=== PATIENT | male | born 1955 | race Caucasian/White ===

== ENCOUNTER 2019-03-01 13:52 | Emergency (ER) | payer OTHER ==
[~2019-03-01] VITALS: Ht 182.9 cm; Wt 83.0 kg
--- NOTE | 2019-03-01 14:14 | PHYS DOC ---
Past History Past Medical History: CAD, CVA Past Surgical History: Coronary Bypass Surgery Additional Past Surgical Histo: Carotid surgery x 2 Smoking: Non-smoker Alcohol Use: None Drug Use: None Adult General Chief Complaint Chief Complaint: WEAKNESS/GENERALIZED HPI HPI A 63-year-old male presents with left leg weakness, generalized weakness, and four-day history of nausea and vomiting. Patient reports feeling like "he's got hit by a truck ". He has not been able to eat or drink much last 4-5 days due to nausea and vomiting. His diet is poor regardless of nausea and vomiting due to a past carotid surgery and he is unable to eat solid foods. He denies a bowel movement for last 2 weeks, but attributes that to his poor diet. He also complains of inability to walk that started a few weeks ago. He reports his right leg gives out on him. He denies dizziness, lightheadedness, chest pain, chest palpitations, shortness of breath. He also reports that he isn't taking any of his medications any more because he hasn't been able to swallow them. He has fallen multiple times due his weakness. Review of Systems Review of Systems Constitutional: Denies fever or chills. Reports fatigue and general feelings of discomfort. Eyes: Denies redness or eye pain HENT: Denies nasal congestion or sore throat Respiratory: Denies cough or shortness of breath Cardiovascular: Denies chest pain or palpitations GI: Reports abdominal pain, nausea, and vomiting. Denies diarrhea : Denies dysuria or hematuria Musculoskeletal: Denies back pain or joint pain Integument: Multiple abrasions on his face and legs. Neurologic: Denies headache or sensory changes; reports generalized weakness- worse to left leg Complete systems were reviewed and found to be within normal limits, except as documented in this note. Allergies Allergies Allergies Coded Allergies Type Severity Reaction Last Updated Verified No Known Drug Allergies 03/01/19 No Physical Exam Physical Exam Constitutional: Well developed, well nourished, no acute distress, non-toxic appearance HENT: Normocephalic, multiple abrasions across his face in different stages of healing. Dry mucous membranes Eyes: PERRL, EOMI, conjunctiva normal, no discharge Neck: Normal range of motion, no tenderness, supple Cardiovascular: Heart rate normal, regular rhythm Lungs & Thorax: Bilateral breath sounds clear to auscultation, no wheezing Abdomen: Soft, nontender. Skin: Warm, dry, no erythema, no rash Extremities: Multiple abrasions on his legs. Left leg has a 3/5 muscle strength. Right leg 5/5 strength Neurologic: Alert and oriented X 3, normal sensory function, decreased strength to left leg Psychologic: Affect normal, judgement normal EKG EKG EKG at 1432 shows sinus rhythm with a heart rate of 80 bpm. A Q-wave in lead 3 and aVF noted. Radiology/Procedures Radiology/Procedures PROCEDURE: PORTABLE CHEST 1V PORTABLE CHEST 1V 03/01/2019 2:17 PM INDICATION: Weakness COMPARISON: None available TECHNIQUE: Portable frontal view of the chest is provided. FINDINGS: The cardiomediastinal silhouette is within normal limits. Median sternotomy changes are present. Lungs are clear. There are no significant pleural effusions. There is no pulmonary vascular congestion. No pneumothorax. IMPRESSION: There is no acute cardiopulmonary process. Electronically signed by: Ileana Foley MD (03/01/2019 3:07 PM) [facility] PROCEDURE: CT HEAD AND CERVICAL SPINE WO STUDY: CT head and cervical spine without contrast INDICATION: Weakness and pain. History of a fall. COMPARISON: None. TECHNIQUE: Axial CT imaging through the head and cervical spine without the use of intravenous contrast. Sagittal and coronal reformats were obtained. One or more of the following individualized dose reduction techniques were utilized for this examination: 1. Automated exposure control 2. Adjustment of the mA and/or kV according to patient size 3. Use of iterative reconstruction technique. FINDINGS: CT head: No acute intracranial hemorrhage. No CT evidence for an acute cortical infarction. No mass effect, midline shift or hydrocephalus. Intracranial atherosclerotic calcifications. Mild soft tissue prominence involving the left parietal scalp could represent mild contusive injury. The calvarium is intact. CT cervical spine: No acute fracture or traumatic malalignment. Ossification of the posterior longitudinal ligament extending from the C2-C3 disc space to the mid aspect of C4. Flowing ossification along the ventral aspect of the C6-T1 vertebral bodies. Partial ankylosis across the posterior elements at T1-T2. Scattered partially mineralized disc bulges the largest of which is seen at C5-C6. Multilevel facet degeneration and uncovertebral joint hypertrophy. OPLL results in at least moderate central canal stenosis with cord flattening from C2-C3 to the mid C4 level. Mild to moderate central canal stenosis at C5-C6. Mild to moderate bony neural foraminal encroachment at scattered levels. Status post carotid endarterectomy on the right. Calcific atherosclerosis at the left carotid bifurcation. No prevertebral or dorsal paraspinous hematoma. IMPRESSION: CT head: 1. No acute intracranial abnormality by CT. Chronic findings as discussed above. CT cervical spine: 1. No acute fracture or traumatic malalignment. 2. Ossification of the posterior longitudinal ligament from C2-C3 disc space to the mid aspect of C4. Flowing ventral osteophytes from C6 through T1 as well as partial ankylosis across the T1-T2 posterior elements. Though not well evaluated by technique, the ossified posterior longitudinal ligament contributes to at least moderate central canal stenosis with cord flattening. This is a chronic finding but nonemergent/outpatient MRI would better assess for the full extent of stenosis and any associated cord signal abnormality as deemed clinically necessary. Electronically signed by: MELVIN MCFARLAND MD (03/01/2019 3:21 PM) [facility] Course & Med Decision Making Course & Med Decision Making Pertinent Labs and Imaging studies reviewed. (See chart for details) Patient presents with several week history of weakness which has now become worse over the last 4-5 days. Patient also reports his been unable to adequately eat due to swallowing issues he thinks was secondary to his carotid surgery. Patient denies known sick contacts. Denies fever or chills. Patient does have a history of prior CVA. It is unclear if there is any baseline deficit. CT head/cervical spine without acute process. Chest x-ray stable. Labs obtained and posted to chart. Hypokalemia and hypomagnesemia addressed. Patient did complain of some chronic back pain for which Norflex IV was provided. Patient reports has not followed closely with a GI specialist but thinks he may need a swallow study. Patient requiring admission for further evaluation and treatment. Discussed with Dr. Stone (hospitalist) who is in agreement with admission but requests to admit to [facility] due to possible need for GI consultation. Patient will likely also need neurology consultation. Discussed findings and plan with patient and family, who acknowledge understanding and agreement. Dragon Disclaimer Dragon Disclaimer This electronic medical record was generated, in whole or in part, using a voice recognition dictation system. Departure Departure: Impression: Primary Impression: Weakness Additional Impressions: Hypokalemia Hypomagnesemia Vomiting Disposition: 05 TRANSFER OTHER ([facility]- Dr. Stone) Condition: STABLE Referrals: NON,STAFF (PCP) Problem Qualifiers Additional Impressions: Vomiting Vomiting type: unspecified Vomiting Intractability: unspecified Nausea presence: unspecified Qualified Codes: R11.10 - Vomiting, unspecified LATHA COLIN DO Mar 01, 2019 14:14
[2019-03-01 14:28] LABS: BASO % 0 % (0-3); EOS % 0 % (0-3); HEMATOCRIT 32.2 % (39.0-53.0); HEMOGLOBIN 10.8 g/dL (13.0-17.5); LYMPH # 0.8 x10^3/uL (1.0-4.8); LYMPH % 10 % (24-48); MEAN CORPUSCULAR HEMOGLOBIN 32 pg (25-35); MEAN CORPUSCULAR HGB CONC 34 g/dL (31-37); MEAN CORPUSCULAR VOLUME 94 fL (79-100); MONO # 0.6 x10^3/uL (0.0-1.1); MONO % 7 % (0-9); NEUT % 83 % (31-73); PLATELET COUNT 254 x10^3/uL (140-400); RED BLOOD COUNT 3.42 x10^6/uL (4.30-5.70); RED CELL DISTRIBUTION WIDTH 17.6 % (11.5-14.5); WHITE BLOOD COUNT 8.5 x10^3/uL (4.0-11.0)
[2019-03-01] MEDS ORDERED: ONDANSETRON PF 4 MG/2 ML VIAL. IVP ONE (14:30)
[2019-03-01] MEDS ORDERED: IV NORMAL SALINE 1,000ML 1,000 ML IV ONE (14:30)
[2019-03-01] MEDS ORDERED: FAMOTIDINE 20 MG/2 ML VIAL IVP ONE (14:30)
[2019-03-01 14:54] LABS: ALBUMIN 3.3 g/dL (3.4-5.0); ALBUMIN/GLOBULIN RATIO 0.9 (1.0-1.7); CALCIUM 9.2 mg/dL (8.5-10.1); CREATININE 0.9 mg/dL (0.7-1.3); GFR 85.2; MAGNESIUM 1.7 mg/dL (1.8-2.4); TOTAL BILIRUBIN 1.1 mg/dL (0.2-1.0); TOTAL PROTEIN 6.9 g/dL (6.4-8.2)
[2019-03-01 14:56] LABS: POTASSIUM 2.7 mmol/L (3.5-5.1)
--- NOTE | 2019-03-01 15:10 | RAD ---
PORTABLE CHEST 1V 03/01/2019 2:17 PM INDICATION: Weakness COMPARISON: None available TECHNIQUE: Portable frontal view of the chest is provided. FINDINGS: The cardiomediastinal silhouette is within normal limits. Median sternotomy changes are present. Lungs are clear. There are no significant pleural effusions. There is no pulmonary vascular congestion. No pneumothorax. IMPRESSION: There is no acute cardiopulmonary process. Electronically signed by: Ileana Foley MD (03/01/2019 3:07 PM) [place] [id number]
--- NOTE | 2019-03-01 15:24 | RAD ---
STUDY: CT head and cervical spine without contrast INDICATION: Weakness and pain. History of a fall. COMPARISON: None. TECHNIQUE: Axial CT imaging through the head and cervical spine without the use of intravenous contrast. Sagittal and coronal reformats were obtained. One or more of the following individualized dose reduction techniques were utilized for this examination: 1. Automated exposure control 2. Adjustment of the mA and/or kV according to patient size 3. Use of iterative reconstruction technique. FINDINGS: CT head: No acute intracranial hemorrhage. No CT evidence for an acute cortical infarction. No mass effect, midline shift or hydrocephalus. Intracranial atherosclerotic calcifications. Mild soft tissue prominence involving the left parietal scalp could represent mild contusive injury. The calvarium is intact. CT cervical spine: No acute fracture or traumatic malalignment. Ossification of the posterior longitudinal ligament extending from the C2-C3 disc space to the mid aspect of C4. Flowing ossification along the ventral aspect of the C6-T1 vertebral bodies. Partial ankylosis across the posterior elements at T1-T2. Scattered partially mineralized disc bulges the largest of which is seen at C5-C6. Multilevel facet degeneration and uncovertebral joint hypertrophy. OPLL results in at least moderate central canal stenosis with cord flattening from C2-C3 to the mid C4 level. Mild to moderate central canal stenosis at C5-C6. Mild to moderate bony neural foraminal encroachment at scattered levels. Status post carotid endarterectomy on the right. Calcific atherosclerosis at the left carotid bifurcation. No prevertebral or dorsal paraspinous hematoma. IMPRESSION: CT head: 1. No acute intracranial abnormality by CT. Chronic findings as discussed above. CT cervical spine: 1. No acute fracture or traumatic malalignment. 2. Ossification of the posterior longitudinal ligament from C2-C3 disc space to the mid aspect of C4. Flowing ventral osteophytes from C6 through T1 as well as partial ankylosis across the T1-T2 posterior elements. Though not well evaluated by technique, the ossified posterior longitudinal ligament contributes to at least moderate central canal stenosis with cord flattening. This is a chronic finding but nonemergent/outpatient MRI would better assess for the full extent of stenosis and any associated cord signal abnormality as deemed clinically necessary. Electronically signed by: MELVIN MCFARLAND MD (03/01/2019 3:21 PM) [place] [id number]
[2019-03-01] MEDS ORDERED: POTASSIUM BICARB 20 MEQ EFFERVESCENT TABLET. PO ONE (16:30)
[2019-03-01] MEDS ORDERED: MAGNESIUM SULFATE 2GM 50 ML IV ONE (16:30)
[2019-03-01 17:08] LABS: BACTERIA,URINE 0 /HPF (0-FEW); BILIRUBIN,URINE NEG (NEG); CLARITY,URINE CLEAR; COLOR,URINE YELLOW; GLUCOSE,URINE NEG (NEG); NITRITE,URINE NEG (NEG); RBC,URINE OCC /HPF (0-2); SQUAMOUS EPITHELIAL CELL,UR OCC /LPF
--- NOTE | 2019-03-01 17:31 | EKG ---
[address] [address] Test Date: 2019-03-01 Test Time: 14:32:59 Pat Name: CELIO FUENTES Department: Room: Gender: M [employer] Assistant: : [id number] Requested By: LATHA COLIN Order Number: [id number] Reading MD: Measurements Intervals [place] Rate: 82 P: 10 [place]: 192 QRS: 22 QRSD: 102 T: 43 QT: 404 QTc: 475 Interpretive Statements SINUS RHYTHM QRS(T) CONTOUR ABNORMALITY CONSISTENT WITH INFERIOR INFARCT PROBABLY OLD ABNORMAL ECG RI6.01 No previous ECG available for comparison
[2019-03-01] MEDS ORDERED: ORPHENADRINE CITRATE 60 MG/2 ML VIAL. IV ONE (20:30)
[2019-03-01] MEDS ORDERED: KETOROLAC 30 MG/ML VIAL. ONE (21:53)
[2019-03-01] MEDS ORDERED: LABETALOL 20 MG/4 ML DISP.SYRIN. ONE (21:54)
[2019-03-01 22:00] VITALS: BP 179/94
[2019-03-01] MEDS ORDERED: LABETALOL 20 MG/4 ML DISP.SYRIN. IVP ONE (22:00)
[2019-03-01] MEDS ORDERED: KETOROLAC 15 MG/ML VIAL. IVP ONE (22:00)
[2019-03-01] MEDS ORDERED: ASPIRIN 325 MG TABLET PO ONE (22:00)
== END 2019-03-01 22:07 | disposition short-term general hospital (02) ==
LOC: ER 13:52
DX: S80.812A Abrasion, left lower leg, initial encounter (principal); S80.811A Abrasion, right lower leg, initial encounter; R53.1 Weakness; E87.6 Hypokalemia; E83.42 Hypomagnesemia; R11.2 Nausea with vomiting, unspecified; I25.810 Atherosclerosis of coronary artery bypass graft(s) without angina pectoris; Z86.73 Personal history of transient ischemic attack (TIA), and cerebral infarction without residual deficits; Z91.81 History of falling; W18.39XA Other fall on same level, initial encounter; Y93.89 Activity, other specified; Y92.89 Other specified places as the place of occurrence of the external cause; Y99.8 Other external cause status
CPT/HCPCS: 36415; 70450; 71045; 72125; 80053; 81001; 82140; 82553; 83605; 83735; 84484; 85025; 85610; 85730; 93005; 96361; 96365; 96366; 96375; 99285; J1885; J2360; J2405; J3475; J3490; J7030